=== PATIENT | female | born 1970 ===

== ENCOUNTER 2018-08-31 07:16 | Outpatient (CLI) | payer OTHER ==
[~2018-08-31 07:16] MED LIST: KETO10TA2 PO; TYLENOL-CODEINE1 TAB PO; TYLENOL325 MG PO
== END 2018-08-31 12:59 | disposition home or self-care (01) ==
LOC: LAB 07:16
DX: D68.8 Other specified coagulation defects (principal); E78.2 Mixed hyperlipidemia; N39.0 Urinary tract infection, site not specified; I10 Essential (primary) hypertension

== ENCOUNTER 2021-07-09 14:03 | Outpatient (CLI) | payer OTHER | END 2021-07-09 14:11 | disposition home or self-care (01) | LOC: MRI 14:03 | DX: M25.561 Pain in right knee (principal) | CPT/HCPCS: 73721 ==